=== PATIENT | female | born 1970 | race Caucasian/White ===

== ENCOUNTER → 2023-12-26 09:30 | Outpatient (REF) | payer OTHER, SELFPAY | LOC: RAD 09:30 | PROVIDERS: ATTENDING PHYSICIAN Nurse Practitioner | DX: E01.0 Iodine-deficiency related diffuse (endemic) goiter (principal) | CPT/HCPCS: 76536 ==

== ENCOUNTER 2024-06-16 04:42 | Emergency (ER) | payer OTHER, SELFPAY ==
[2024-06-16 04:43] VITALS: BP 164/93
--- NOTE | 2024-06-16 05:01 | ED.GENMED ---
History of Present Illness
<Dani Olmstead MD, Resident - Last Filed: 06/17/24 08:06>
General
Chief Complaint: Flank Pain
Time Seen by Provider: 06/16/24 04:47
History of Present Illness
History of Present Illness:
The patient is a 53-year-old female known to the ED with right flank pain radiating to her mid back, at 5 PM this evening. She describes the pain is so intense that she felt compelled to seek emergency care. She has a history of several cysteine
stones and episodes of cystinuria and has undergone for percutaneous ablation for kidney stones. The patient reports that the current pain is similar to the previous episodes she is experiencing nausea but denies any vomiting, fever, chills,
hematuria, hematochezia.
Past History
<Dani Olmstead MD, Resident - Last Filed: 06/17/24 08:06>
Past History
ED Past Medical History: Other (Kidney stones, polycystic ovarian disease)
ED Past Surgical History: None
Social History
Tobacco: Non-smoker
Alcohol: None
Personal:
Living: with family
Employment: Not employed
Family History
Family History: Other (Noncontributory)
Review of Systems
<Dani Olmstead MD, Resident - Last Filed: 06/17/24 08:06>
Review of Systems
ABD/GI: Reports abdominal pain
Phy Exam
<Dani Olmstead MD, Resident - Last Filed: 06/17/24 08:06>
General Physical Exam
General Presentation: well appearing and mild distress (due to pain )
Cardiovascular Exam
Cardiovascular Exam: regular rate/rhythm
Pulmonary Exam
Pulmonary Exam: lungs clear
Gastrointestinal Exam
Gastrointestinal Exam: normal bowel sounds, soft, non distended and tender (right flank tenderness )
Psychiatric Exam
Psychiatric Exam: normal mood/affect
Course
<Dani Olmstead MD, Resident - Last Filed: 06/17/24 08:06>
Orders/Labs/Results
Orders:
Orders
06/16/24 05:07
Complete Blood Count/With Diff Urgent
Urinalysis Reflex To Culture Urgent
Date Specimen was Collected: 06/16/24
Time Specimen was Collected: 04:47
Urine Microscopic Reflex Cult Urgent
Urine Culture Urgent
CRUZ Source: U
Specimen Description:
Date Specimen was Collected: 06/16/24
Time Specimen was Collected: 04:47
06/16/24 05:10
CT Abd/pel Without Iv Or Oral Urgent
Comment:
Reason For Exam: right flank pain
0.9% Sodium Chloride 250 ml [Nss] 250 ml IV BOLUS
Ketorolac [Toradol] 30 mg IV NOW STA
06/16/24 05:11
Ondansetron Injectable [Zofran] 4 mg IV NOW STA
06/16/24 06:30
Comprehensive Metabolic Panel Urgent
Abnormal Lab Results
06/16/24 06/16/24
05:07 06:30
Absolute Monos (auto) 0.7 H 10^3/uL
(0.1-0.6)
Glucose 129 H mg/dl
(70-99)
Leukocyte Esterase Rfl 1+ A
(Negative)
Urine WBC (Reflex) 11-15 A /HPF
(0-5)
Urine Bacteria (Reflex) Moderate A
(Negative)
06/16/24 05:07
06/16/24 06:30
Vital Signs
Initial and Last Documented VS:
Initial Vital Signs
Temp Pulse Resp BP Pulse Ox
98 F 89 16 164/93 99
06/16/24 04:43 06/16/24 04:43 06/16/24 04:43 06/16/24 04:43 06/16/24 04:43
Last Documented Vital Signs
Temp Pulse Resp BP Pulse Ox
98 F 72 16 140/80 98
06/16/24 04:43 06/16/24 08:03 06/16/24 08:03 06/16/24 08:03 06/16/24 08:03
<Daniel Snyder, DO - Last Filed: 06/16/24 05:29>
Orders/Labs/Results
Orders:
Orders
06/16/24 05:07
Complete Blood Count/With Diff Urgent
Urinalysis Reflex To Culture Urgent
Date Specimen was Collected: 06/16/24
Time Specimen was Collected: 04:47
Urine Microscopic Reflex Cult Urgent
Urine Culture Urgent
CRUZ Source: U
Specimen Description:
Date Specimen was Collected: 06/16/24
Time Specimen was Collected: 04:47
06/16/24 05:10
CT Abd/pel Without Iv Or Oral Urgent
Comment:
Reason For Exam: right flank pain
0.9% Sodium Chloride 250 ml [Nss] 250 ml IV BOLUS
Ketorolac [Toradol] 30 mg IV NOW STA
06/16/24 05:11
Ondansetron Injectable [Zofran] 4 mg IV NOW STA
06/16/24 06:30
Comprehensive Metabolic Panel Urgent
Abnormal Lab Results
06/16/24 06/16/24
05:07 06:30
Absolute Monos (auto) 0.7 H 10^3/uL
(0.1-0.6)
Glucose 129 H mg/dl
(70-99)
Leukocyte Esterase Rfl 1+ A
(Negative)
Urine WBC (Reflex) 11-15 A /HPF
(0-5)
Urine Bacteria (Reflex) Moderate A
(Negative)
06/16/24 05:07
06/16/24 06:30
Vital Signs
Initial and Last Documented VS:
Initial Vital Signs
Temp Pulse Resp BP Pulse Ox
98 F 89 16 164/93 99
06/16/24 04:43 06/16/24 04:43 06/16/24 04:43 06/16/24 04:43 06/16/24 04:43
Last Documented Vital Signs
Temp Pulse Resp BP Pulse Ox
98 F 72 16 140/80 98
06/16/24 04:43 06/16/24 08:03 06/16/24 08:03 06/16/24 08:03 06/16/24 08:03
<Donato Mon DO - Last Filed: 06/16/24 07:37>
Orders/Labs/Results
Orders:
Orders
06/16/24 05:07
Complete Blood Count/With Diff Urgent
Urinalysis Reflex To Culture Urgent
Date Specimen was Collected: 06/16/24
Time Specimen was Collected: 04:47
Urine Microscopic Reflex Cult Urgent
Urine Culture Urgent
CRUZ Source: U
Specimen Description:
Date Specimen was Collected: 06/16/24
Time Specimen was Collected: 04:47
06/16/24 05:10
CT Abd/pel Without Iv Or Oral Urgent
Comment:
Reason For Exam: right flank pain
0.9% Sodium Chloride 250 ml [Nss] 250 ml IV BOLUS
Ketorolac [Toradol] 30 mg IV NOW STA
06/16/24 05:11
Ondansetron Injectable [Zofran] 4 mg IV NOW STA
06/16/24 06:30
Comprehensive Metabolic Panel Urgent
Abnormal Lab Results
06/16/24 06/16/24
05:07 06:30
Absolute Monos (auto) 0.7 H 10^3/uL
(0.1-0.6)
Glucose 129 H mg/dl
(70-99)
Leukocyte Esterase Rfl 1+ A
(Negative)
Urine WBC (Reflex) 11-15 A /HPF
(0-5)
Urine Bacteria (Reflex) Moderate A
(Negative)
06/16/24 05:07
06/16/24 06:30
Vital Signs
Initial and Last Documented VS:
Initial Vital Signs
Temp Pulse Resp BP Pulse Ox
98 F 89 16 164/93 99
06/16/24 04:43 06/16/24 04:43 06/16/24 04:43 06/16/24 04:43 06/16/24 04:43
Last Documented Vital Signs
Temp Pulse Resp BP Pulse Ox
98 F 72 16 140/80 98
06/16/24 04:43 06/16/24 08:03 06/16/24 08:03 06/16/24 08:03 06/16/24 08:03
<Dani Olmstead MD, Resident - Last Filed: 06/17/24 08:06>
*Critical Care Note
Total Time (30-74mins, 75-104mins- exclusive of procedures): Not Applicable
<Dani Olmstead MD, Resident - Last Filed: 06/17/24 08:06>
Update Note
Update Note:
53-year-old female presented with right flank pain radiating to right back with history of cystine stones and episodes of cystinuria. Will do CT scan of the abdomen pelvis without contrast. IV Toradol for pain, IV Zofran as needed for nausea. CT
scan of the abdomen/pelvis shows slight fullness and thickening of the right ureter, potentially due to ascending UTI or recently passed stone. Nonobstructing stone in the lower pole of the right kidney. Asymmetrical right renal scarring. No
obstruction or free gas. No diverticulosis or appendicitis. No calcified gallstones or ductal dilatation.
<Donato Mon DO - Last Filed: 06/16/24 07:37>
Update Note
Update Note:
53-year-old female presented with right flank pain radiating to right back with history of cystine stones and episodes of cystinuria. Will do CT scan of the abdomen pelvis without contrast. IV Toradol for pain, IV Zofran as needed for nausea. CT
scan of the abdomen/pelvis shows slight fullness and thickening of the right ureter, potentially due to ascending UTI or recently passed stone. Nonobstructing stone in the lower pole of the right kidney. Asymmetrical right renal scarring. No
obstruction or free gas. No diverticulosis or appendicitis. No calcified gallstones or ductal dilatation.
730 patient is feeling better. Patient is going on vacation and after discussion mild I think the urine is contaminated we will give the patient antibiotics. Patient with will have Flomax and Toradol. Patient understands drink plenty of fluids.
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 Patient will follow-up with her neurologist and clay miller.
ED Attending Note
<Dani Olmstead MD, Resident - Last Filed: 06/17/24 08:06>
-
Portions of this chart may have been created with voice recognition software.� Occasional wrong word or��sound alike� substitutions may have occurred due to the inherent limitations of voice recognition software.
<Daniel Snyder DO - Last Filed: 06/16/24 05:29>
ED Attending Note
Patient seen and examined by attending physician: Yes
I performed a history and physical exam of patient and discussed management with resident, I reviewed resident's note and agree with documented findings and plan of care.: Yes
ED Attending Note:
Seen with resident examined independently recurrent right flank pain history of same history of cystine stones, followed at [facility] has required multiple procedures previously, afebrile here does not want narcotics check CT labs
Discharge Plan
Departure
Patient Disposition: Home (Routine Discharge)
Date of Disposition: 06/16/24
Time of Disposition: 07:33
Patient with high blood pressure during this ER visit?: Yes
Condition: Good
Covid-19: Not Applicable
Discharge Problem:
Renal colic on right side
Instructions: Kidney Stones (DC), Renal Colic (DC), BLOOD PRESSURE
Prescriptions:
New
ketorolac 10 mg tablet
10 mg PO QID PRN (Reason: pain) 5 Days Qty: 20 0RF
tamsulosin [Flomax] 0.4 mg capsule
0.4 mg PO HS Qty: 10 0RF
ciprofloxacin HCl [Cipro] 500 mg tablet
500 mg PO BID Qty: 14 0RF
No Action
tamsulosin 0.4 MG capsule
0.4 mg PO DAILY Qty: 10 0RF
ketorolac 10 MG tablet
10 mg PO Q6HPRN PRN (Reason: pain.) Qty: 12 0RF
Referrals:
UNKNOWN - PT DOES,NOT KNOW [Unknown Provider] -
Activity Restrictions/Additional Instructions:
Have your blood pressure rechecked within the week by your family physician. Follow-up with your urologist and clay miller as needed. Have a wonderful vacation.
Interventions
Interventions:
*Risk Screen - Suicide Last Done: 06/16/24 04:43
*General Assessment Last Done: 06/16/24 06:36
*Neglect/Abuse Screening Last Done: 06/16/24 04:43
ED- Fall Risk Assessment Last Done: 06/16/24 04:43
*ED COVID-19 Vaccine History Last Done: 06/16/24 06:37
*Nursing Disposition Last Done: 06/16/24 08:04
LE-Atzkxb-Emduevsvtd Assessment Last Done: 06/16/24 05:15
ED-Female Genitourinary Assessment Last Done: 06/16/24 05:15
Discharge Date and Time
Discharge Date/Time: 06/16/24 08:04
Print Language: BURKINAN
[2024-06-16 05:15] VITALS: BMI 39.0
[2024-06-16 05:18] LABS: % Basophils 0.8 % (0-2); % Immature Granulocytes 0.2 % (0-0.5); % Lymphocytes 29.5 % (20.5-51.1); % Monocytes 7.2 % (1.7-9.3); % Neutrophils 60.3 % (42.2-75.2); Absolute Basophils 0.1 10^3/uL (0-0.2); Absolute Eosinophils 0.2 10^3/uL (0-0.7); Absolute Lymphocytes 2.7 10^3/uL (1.2-3.4); Absolute Monocytes 0.7 10^3/uL (0.1-0.6); Absolute Neutrophils 5.6 10^3/uL (1.4-6.5); Hematocrit 39.4 % (37.0-47.0); Hemoglobin 14.1 g/dL (12.0-16.0); Mean Corp Hgb Conc. 35.8 g/dL (33.0-37.0); Mean Corpuscular Hgb 30.4 pg (27.0-31.0); Mean Corpuscular Volume 84.9 fL (81.0-99.0); Mean Platelet Volume 9.8 fL (7.4-10.4); Nucleated Red Blood Cells % 0 %; Platelet Count 221 10^3/uL (130-400); Red Blood Cell Count 4.64 10^6/uL (4.20-5.40); Red Cell Dist. Width 12.4 % (11.5-14.5); Urine Albumin Trace (Neg - Trace); Urine Bilirubin Negative (Negative); Urine Character Clear (Clear); Urine Color Yellow; Urine Glucose Negative (Negative); Urine Ketone Negative (Negative); Urine Leukocyte 1+ (Negative); Urine Nitrite Negative (Negative); Urine Occult Blood Negative (Negative); Urine Specific Gravity 1.015 (<1.030); Urine Urobilinogen Negative (Neg - 1+); White Blood Cell Count 9.2 10^3/uL (4.8-10.8)
[2024-06-16] MEDS: TORADOL 30 MG IV (05:24)
[2024-06-16] MEDS: NSS 250 IV (05:26)
[2024-06-16 06:28] VITALS: BP 152/90
[2024-06-16 06:40] LABS: Urine Amorphous Seen; Urine Squamous Cell >30 /LPF (Few); Urine Urothelial Cell >30 /LPF (FEW)
[2024-06-16 06:41] LABS: Urine Bacteria Moderate (Negative); Urine Red Blood Cell 0-2 /HPF (0-2)
[2024-06-16 06:57] LABS: ALT (SGPT) 24 U/L (0-35); AST (SGOT) 21 U/L (14-36); Albumin 4.3 g/dl (3.5-5.0); Alkaline Phosphatase 76 U/L (38-126); Blood Urea Nitrogen 13 mg/dl (7-17); Calcium 9.1 mg/dl (8.4-10.2); Carbon Dioxide 25 mmol/L (22-30); Chloride 102 mmol/L (98-107); Estimated Creatinine Clearance 94 ml/min; Glucose 129 mg/dl (70-99); Potassium 3.7 mmol/L (3.5-5.1); Sodium 136 mmol/L (135-145); Total Bilirubin 0.4 mg/dl (0.2-1.3); Total Protein 6.6 g/dl (6.3-8.2); eGFR > 60.00
[2024-06-16 08:03] VITALS: BP 140/80
== END 2024-06-16 08:04 | disposition home or self-care (01) ==
LOC: EMR 04:42
PROVIDERS: EMERGENCY PHYSICIAN Emergency Medicine; FAMILY PHYSICIAN Internal Medicine
DX: N23 Unspecified renal colic (principal); E28.2 Polycystic ovarian syndrome; Z87.440 Personal history of urinary (tract) infections; Z87.442 Personal history of urinary calculi
CPT/HCPCS: 99284; 96374; 96375; 96361; 74176; 80053; 81003; 81015; 85025; 87086

== ENCOUNTER → 2024-08-08 12:39 | Outpatient (REF) | payer OTHER, SELFPAY | LOC: HWRAD 12:39 | PROVIDERS: ATTENDING PHYSICIAN Obstetrics & Gynecology; FAMILY PHYSICIAN Internal Medicine | DX: N95.0 Postmenopausal bleeding (principal) | CPT/HCPCS: 76830; 76856 ==

== ENCOUNTER → 2024-12-10 08:56 | Outpatient (REF) | payer OTHER, SELFPAY | LOC: WDC 08:56 | PROVIDERS: ATTENDING PHYSICIAN Nurse Practitioner; REFERRING PHYSICIAN Student in an Organized Health Care Education/Training Program | DX: Z12.31 Encounter for screening mammogram for malignant neoplasm of breast (principal) | CPT/HCPCS: 77063; 77067 ==

== ENCOUNTER 2025-02-25 06:20 | Day surgery (SDC) | payer OTHER, SELFPAY | END 2025-02-25 13:36 | disposition home or self-care (01) | LOC: GI 06:20 | PROVIDERS: ATTENDING PHYSICIAN Internal Medicine | DX: Z12.11 Encounter for screening for malignant neoplasm of colon (principal); K64.4 Residual hemorrhoidal skin tags; D12.3 Benign neoplasm of transverse colon; D12.8 Benign neoplasm of rectum | CPT/HCPCS: 45385; 88305 ==

== ENCOUNTER → 2025-07-09 08:43 | Outpatient (REF) | payer OTHER, SELFPAY | LOC: DHSLP 08:43 | PROVIDERS: ATTENDING PHYSICIAN Hospitalist; FAMILY PHYSICIAN Internal Medicine | DX: G47.33 Obstructive sleep apnea (adult) (pediatric) (principal); R09.02 Hypoxemia | CPT/HCPCS: 95806 ==